=== PATIENT | female | born 1950 | race Caucasian/White ===

== ENCOUNTER 2016-11-18 12:28 | Emergency (ER) | payer OTHER, MEDICARE ==
[2016-11-18 12:55] VITALS: TEMP 97.8; BMI 25.4
[2016-11-18] MEDS ORDERED: ASPIRIN 81 MG CHEWABLE TABLETS PO ONE (14:34)
[2016-11-18] MEDS ORDERED: ONDANSETRON *ODT* 4 MG TABLET SL ONE (14:36)
[2016-11-18] MEDS ORDERED: LORazepam 1 MG TABLET PO ONE (14:37)
[2016-11-18] MEDS ORDERED: SODIUM CHLORIDE 1,000 ML IV SCH (14:45)
--- NOTE | 2016-11-18 14:53 | PDOC ---
History of Present Illness - General History Source: Patient Exam Limitations: No Limitations - History of Present Illness Initial Comments: 11/18/16 14:53 The patient is a 66 year old female, with a significant past medical history of HTN and high cholesterol, who presents to the emergency department with elevated blood pressure, for the past week. She reports switching her meds recently about a week ago for her HTN secondary to a rash from Lisinopril. She reports checking her blood pressure the past week and having her blood pressure steadily be in the high 180s/70s. She also having a mild generalized headache, nausea, and vomiting (only once today, nonbloody). Patient also notes hitting her head on her kitchen counter about 4-5 days ago. She denies any LOC since then. She reports taking a xanax right before coming to the ER an hour ago. She denies fever, chills, and dizziness. She denies diarrhea and constipation. Allergies: Lisinopril Past surgical history: None reported. Social history: Nonsmoker. PCP: Dr. Cortez <Edilson Andrade - Last Filed: 11/18/16 16:19> <Cristhian Quiles - Last Filed: 11/18/16 18:59> - General Chief Complaint: Blood Pressure Problem Stated Complaint: DIZZINESS, HIGH BP Time Seen by Provider: 11/18/16 14:24 Past History <Edilson Andrade - Last Filed: 11/18/16 16:19> - Past Medical History HTN: Yes Hypercholesterolemia: Yes - Psycho/Social/Smoking Cessation Hx Anxiety: Yes Suicidal Ideation: No Smoking History: Never smoked <Cristhian Quiles - Last Filed: 11/18/16 18:59> - Past Medical History Allergies/Adverse Reactions: Allergies Allergy/AdvReac Type Severity Reaction Status Date / Time lisinopril Allergy Verified 11/18/16 12:41 Home Medications: Ambulatory Orders Alprazolam [Xanax] 0.5 mg PO PRN PRN 11/18/16 Amlodipine Besylate [Norvasc -] 5 mg PO DAILY 11/18/16 Aspirin [ASA -] 81 mg PO DAILY 11/18/16 Atorvastatin Ca [Lipitor] 10 mg PO HS 11/18/16 Clonidine HCl [Catapres] 0.1 mg PO TID PRN #30 tablet MDD 3 11/18/16 Escitalopram Oxalate [Lexapro -] 10 mg PO DAILY 11/18/16 Hydrochlorothiazide [Hctz -] 12.5 mg PO DAILY 11/18/16 Lorazepam [Ativan] 1 mg PO TID PRN #30 tablet MDD 3 11/18/16 Review of Systems - Review of Systems Able to Perform ROS?: Yes Comments:: 11/18/16 14:53 GENERAL/CONSTITUTIONAL: No fever or chills. No weakness. HEAD, EYES, EARS, NOSE AND THROAT: No change in vision. No ear pain or discharge. No sore throat. CARDIOVASCULAR: No chest pain or shortness of breath. RESPIRATORY: No cough, wheezing, or hemoptysis. GASTROINTESTINAL: Yes nausea, vomiting No diarrhea or constipation. GENITOURINARY: No dysuria, frequency, or change in urination. MUSCULOSKELETAL: No joint or muscle swelling or pain. No neck or back pain. SKIN: No rash NEUROLOGIC: Yes headache No vertigo, loss of consciousness, or change in strength/sensation. ENDOCRINE: No increased thirst. No abnormal weight change. HEMATOLOGIC/LYMPHATIC: No anemia, easy bleeding, or history of blood clots. ALLERGIC/IMMUNOLOGIC: No hives or skin allergy. <Edilson Andrade - Last Filed: 11/18/16 16:19> *Physical Exam - Vital Signs Last Vital Signs Temp Pulse Resp BP Pulse Ox 97.8 F 75 16 180/68 98 11/18/16 12:41 11/18/16 12:41 11/18/16 12:41 11/18/16 12:41 11/18/16 12:41 - Physical Exam Comments: 11/18/16 14:54 GENERAL: Awake, alert, and fully oriented, extremely anxious. HEAD: No signs of trauma EYES: PERRLA, EOMI, sclera anicteric, conjunctiva clear ENT: Auricles normal inspection, hearing grossly normal, nares patent, oropharynx clear without exudates. Moist mucosa NECK: Normal ROM, supple, no lymphadenopathy, JVD, or masses LUNGS: Breath sounds equal, clear to auscultation bilaterally. No wheezes, and no crackles HEART: Regular rate and rhythm, normal S1 and S2, no murmurs, rubs or gallops ABDOMEN: Soft, nontender, normoactive bowel sounds. No guarding, no rebound. No masses EXTREMITIES: Normal range of motion, no edema. No clubbing or cyanosis. No cords, erythema, or tenderness NEUROLOGICAL: Cranial nerves II through XII grossly intact. Normal speech, normal gait SKIN: Warm, Dry, normal turgor, no rashes or lesions noted. <Edilson Andrade - Last Filed: 11/18/16 16:19> - Vital Signs Last Vital Signs Temp Pulse Resp BP Pulse Ox 97.8 F 75 16 180/68 98 11/18/16 12:41 11/18/16 12:41 11/18/16 12:41 11/18/16 12:41 11/18/16 12:41 <Cristhian Quiles - Last Filed: 11/18/16 18:59> Heart Score/ECG Review - ECG Impressions Comment:: 11/18/16 15:22 Vent rate 70 bpm PA interval 168 ms QRS duration 104 ms Normal sinus rhythm. <Edilson Andrade - Last Filed: 11/18/16 16:19> ED Treatment Course - LABORATORY CBC & Chemistry Diagram: 11/18/16 14:53 11/18/16 14:53 - RADIOLOGY Radiograph Interpretation: 11/18/16 16:19 CHEST X-RAY impressions reported by : No acute lung disease is present: Borderline cardiomegaly. <Edilson Andrade - Last Filed: 11/18/16 16:19> - LABORATORY CBC & Chemistry Diagram: 11/18/16 14:53 11/18/16 14:53 - RADIOLOGY Radiology Studies Ordered: Category Date Time Status HEAD CT WITHOUT CONTRAST [CT] Stat CT Scan 11/18/16 14:37 Ordered CHEST X-RAY PORTABLE* [RAD] Stat Radiology 11/18/16 14:35 Ordered <Cristhian Quiles - Last Filed: 11/18/16 18:59> *DC/Admit/Observation/Transfer - Attestations Scribe Attestion: 11/18/16 14:54 Documentation prepared by Edilson Andrade, acting as medical transport specialist for Cristhian Quiles DO. <Edilson Andrade - Last Filed: 11/18/16 16:19> - Attestations Physician Attestion: 11/18/16 14:53 IDr. Cristhian, attest that this document has been prepared under my direction and personally reviewed by me in its entirety. I further attest, that it accurately reflects all work, treatment, procedures and medical decision -making performed by me. <Cristhian Quiles - Last Filed: 11/18/16 18:59> Diagnosis at time of Disposition: Anxiety Hypertension Qualifiers: Hypertension type: unspecified secondary hypertension Qualified Code(s): I15.9 - Secondary hypertension, unspecified; I15 - Secondary hypertension - Prescriptions Prescriptions: Lorazepam [Ativan] 1 mg PO TID PRN #30 tablet MDD 3 PRN Reason: Anxiety Clonidine HCl [Catapres] 0.1 mg PO TID PRN #30 tablet MDD 3 PRN Reason: Elevated Systolic >150 - Referrals Referrals: Kyle Cortez [Primary Care Provider] - - Patient Instructions Printed Discharge Instructions: DI for High Blood Pressure, DI for Anxiety -- Adult, Unique Concerns When Grieving for a Sudden Loss Additional Instructions: Give your daughter the HCTZ and the Xanax. Tomorrow if your Top number on your BP is >150 take a catapres, in the morning, eight hours later and before bed. Take your amlodipine no matter what, in the morning. You can have 2 or 3 Ativan during the day about 8 hours apart if you feel anxious. Do not drive and stay on the couch if you take the ativan. I know it is hard, especially when we loose our mom. Follow up with your doctor early next week. Return to us if any problems- Best- Dr. Cristhian Quiles
[2016-11-18] MEDS ORDERED: ONDANSETRON *ODT* 4 MG TABLET ONE (15:10)
[2016-11-18] MEDS ORDERED: ASPIRIN 81 MG CHEWABLE TABLETS ONE (15:10)
[2016-11-18] MEDS ORDERED: LORazepam 0.5 MG TABLET ONE (15:11)
[2016-11-18 15:23] LABS: BASOPHIL 0.5 % (0-2.0); EOSINOPHIL 0.5 % (0-4.5); INR 1.12 (0.82-1.09); MCH 30.8 pg (25.7-33.7); MEAN CELL VOLUME 90.3 fl (80-96); MEAN PLT VOLUME 8.3 fl (7.5-11.1); NEUTROPHILS 70.1 % (42.8-82.8); PLATELET COUNT 285 K/MM3 (134-434); PROTHROMBIN TIME (PATIENT) 12.3 SEC (9.98-11.88); RDW 13.2 % (11.6-15.6); WHITE BLOOD COUNT 7.8 K/mm3 (4.0-10.0)
[2016-11-18 15:28] LABS: URINE APPEARANCE CLEAR; URINE BILIRUBIN NEGATIVE (NEGATIVE); URINE COLOR STRAW; URINE GLUCOSE (UA) NEGATIVE (NEGATIVE); URINE KETONE NEGATIVE (NEGATIVE); URINE LEUK ESTERASE NEGATIVE (NEGATIVE); URINE NITRITE NEGATIVE (NEGATIVE); URINE PROTEIN NEGATIVE (NEGATIVE); URINE UROBILINOGEN NEGATIVE E.U./dl (0.2-1.0)
[2016-11-18 15:30] LABS: URINE BLOOD 1+ (NEGATIVE)
[2016-11-18 15:32] LABS: ALBUMIN 4.3 g/dl (3.4-5.0); ANION GAP 11 (8-16); BILIRUBIN,TOTAL 0.5 mg/dL (0.2-1.0); CALCIUM 9.5 mg/dL (8.5-10.1); CO2 28 mmol/L (21-32); CREATININE 0.5 mg/dL (0.55-1.02); GLUCOSE,RANDOM 107 mg/dL (74-106); SGOT/AST 15 U/L (15-37); SGPT/ALT 21 U/L (12-78); TOT PROT 7.4 g/dl (6.4-8.2)
[2016-11-18 15:35] LABS: ALK PHOS 74 U/L (45-117); TROPONIN I < 0.02 ng/ml (0.00-0.05); URINE RBC 1 /hpf (0-3); URINE WBC <1 /hpf (3-5)
[2016-11-18 18:09] VITALS: BP 177/73; PULSE 66
[2016-11-18] MEDS ORDERED: cloNIDine HCL 0.1 MG TABLET PO ONE (18:10)
[2016-11-18] MEDS ORDERED: cloNIDine HCL 0.1 MG TABLET ONE (18:23)
--- NOTE | 2016-11-18 22:58 | EKG ---
Test Reason : Blood Pressure : / mmHG Vent. Rate : 070 BPM Atrial Rate : 070 BPM P-R Int : 168 ms QRS Dur : 104 ms QT Int : 422 ms P-R-T Axes : 058 003 032 degrees QTc Int : 455 ms NORMAL SINUS RHYTHM SEPTAL INFARCT , AGE UNDETERMINED ABNORMAL ECG NO PREVIOUS ECGS AVAILABLE Confirmed by NIRAV PADRON MD ([id number]) on 11/18/2016 10:58:12 PM Referred By: Confirmed By:NIRAV PADRON MD
== END 2016-11-18 19:05 | disposition home or self-care (01) ==
LOC: JER 12:28
DX: I15.9 Secondary hypertension, unspecified (principal); F41.9 Anxiety disorder, unspecified; E78.00 Pure hypercholesterolemia, unspecified; Z79.82 Long term (current) use of aspirin
CPT/HCPCS: 36415; 70450-TC; 71010-TC; 80053; 81003; 81015; 82550; 83735; 83880; 84484; 85025; 85610; 93005; 93010; 99285-25